=== PATIENT | female | born 1985 | race Two or more races ===

== ENCOUNTER 2019-03-20 08:39 | Outpatient (CLI) | payer OTHER | END 2019-03-20 08:47 | disposition home or self-care (01) | LOC: SONOGRAMA 08:39 → MAMO-SONO 08:45 → SONOGRAMA 08:47 | DX: N63.10 Unspecified lump in the right breast, unspecified quadrant (principal); N63.20 Unspecified lump in the left breast, unspecified quadrant; Z64.4 Discord with counselors; Z12.31 Encounter for screening mammogram for malignant neoplasm of breast; Z87.898 Personal history of other specified conditions ==

== ENCOUNTER 2020-10-27 06:25 | Day surgery (SDC) | payer OTHER ==
[~2020-10-27 06:25] MED LIST: ALLEGRA PO
[2020-10-27] MEDS ORDERED: BACTRIM DS TAB1 EACH PO (12:35)
[2020-10-27] MEDS ORDERED: OXYC1TAB9 PO (12:35)
== END 2020-10-27 16:45 | disposition home or self-care (01) ==
LOC: CIR.AMB 06:25
PROVIDERS: ATTEND Orthopaedic Surgery Sports Medicine
DX: S52.531B Colles' fracture of right radius, initial encounter for open fracture type I or II (principal); Z20.822 Contact with and (suspected) exposure to COVID-19
CPT/HCPCS: 25609; C1776